=== PATIENT | male | born 1985 | race Caucasian/White ===

== ENCOUNTER 2016-07-17 17:35 | Emergency (ER) | payer SELFPAY ==
[~2016-07-17] VITALS: Ht 188 cm; Wt 83.6 kg
[2016-07-17] MEDS ORDERED: ASPIRIN 81 MG TABLET CHEW PO ONE (18:00)
[2016-07-17] MEDS ORDERED: ASPIRIN 81 MG TABLET CHEW ONE (18:24)
[2016-07-17 18:43] LABS: ASPARTATE AMINO TRANSFERASE 25 U/L (15-37); BLOOD UREA NITROGEN 29 mg/dL (7-18)
[2016-07-17 18:48] LABS: IS PT STATUS REG ER OR PRE ER? YES
[2016-07-17 20:12] VITALS: BP 129/74
== END 2016-07-17 20:13 | disposition home or self-care (01) ==
LOC: ED 20:04
DX: R07.89 Other chest pain (principal)
CPT/HCPCS: 36415; 71010; 80053; 84484; 85025; 93005